=== PATIENT | male | born 1970 | race Caucasian/White ===

== ENCOUNTER 2021-01-19 09:00 | Day surgery (SDC) | payer OTHER ==
[2021-01-19] MEDS ORDERED: Lactated Ringers 1,000 ML IV SCH (09:30)
[2021-01-19] MEDS ORDERED: DIPRIVAN 200 MG/20 ML IV ONE ×3 (11:01→11:32)
[2021-01-19] MEDS ORDERED: ROBINUL ONE (11:17)
[2021-01-19 12:49] VITALS: BP 109/75; PULSE 59; O2SAT 99
--- NOTE | 2021-01-19 13:10 | OP ---
SURGERY DATE/TIME: 01/19/2021 1111 PREOPERATIVE DIAGNOSIS: Due for colorectal cancer screening. POSTOPERATIVE DIAGNOSIS: Colon polyp. PROCEDURE: Colonoscopy. SURGEON: Feliberto Owens M.D. ANESTHESIA: IV anesthesia. PATIENT CONDITION: Stable. COMPLICATIONS: None. SPECIMEN: Transverse colon polyp. HISTORY: The patient is a 50-year-old male with no GI symptoms, due for colorectal cancer screening. Risk of infection, bleeding, perforation discussed and he wants to proceed. FINDINGS: Good preparation. A 3 mm transverse colon hyperplastic appearing polyp. Moderate sigmoid diverticulosis. DESCRIPTION OF PROCEDURE: The patient is routinely positioned. A time out is performed. Digital rectal exam is normal. Colonoscope is inserted and advanced to the terminal ileum. The preparation is good. The entire colon is evaluated. There is one small 3 mm polyp in the transverse colon taken with biopsy forceps. This is hyperplastic appearing. There is moderate diverticulosis in the sigmoid colon. The rectum is normal. Retroflexion normal. Pictures taken of the GI, appendiceal orifice, ileocecal valve, rectum and polyp. The patient tolerated the procedure well. He is then taken to recovery in stable condition. RECOMMENDATIONS: I recommend follow up for pathology result within one month. Likely next colonoscopy will be three to five years.
== END 2021-01-19 12:53 | disposition home or self-care (01) ==
LOC: SDC 09:00
PROVIDERS: ATTEND Surgery
DX: Z12.11 Encounter for screening for malignant neoplasm of colon (principal); K57.30 Diverticulosis of large intestine without perforation or abscess without bleeding; K63.5 Polyp of colon
CPT/HCPCS: 88305; J2704